=== PATIENT | female | born 1985 | race Caucasian/White ===

== ENCOUNTER 2021-10-08 13:18 | Emergency (ER) | payer MEDICAID ==
[~2021-10-08] VITALS: Ht 167.6 cm; Wt 57.2 kg
[2021-10-08] MEDS ORDERED: LORazepam 2 mg/ml vial IV ONE ×2 (13:35→16:30)
[2021-10-08] MEDS ORDERED: haloperidol lactate 5mg/ml inj IM ONE (13:35)
[2021-10-08] MEDS ORDERED: normal saline 1000ML IV soln IVB ONE (13:35)
--- NOTE | 2021-10-08 13:45 | NUR ---
FIRST CONTACT WITH PT. FOUND WRITHING IN BED FROM ABD PAIN/WRETCHING. PIV STARTED, LABS DRAWN. PT CRYING, ASKING FOR BLANKET. BLANKETS PROVIDED. EKG DONE BY TECH. FLUIDS AND MEDS GIVEN DENNYS EMAR.
[2021-10-08 14:11] LABS: BASOPHILS # (AUTO) 0.1 X10'3 (0-0.2); BASOPHILS % (AUTO) 1.1 % (0-1); EOSINOPHILS % (AUTO) 0.1 % (0-6); HEMATOCRIT 42.1 % (35.0-45.0); HEMOGLOBIN 14.3 g/dl (12.0-16.0); LYMPHOCYTES % (AUTO) 9.6 % (21-51); MEAN CORPUSCULAR HEMOGLOBIN 31.5 PG (27.0-31.0); MEAN CORPUSCULAR VOLUME 92.5 FL (78-98); MONOCYTES # (AUTO) 0.3 X10'3 (0-0.9); MONOCYTES % (AUTO) 3.2 % (2-12); NEUTROPHILS # (AUTO) 9.2 X10'3 (1.8-7.7); PLATELET COUNT 287 X10'3 (140-440); RED BLOOD COUNT 4.55 X10'6 (4.20-5.60); RED CELL DISTRIBUTION WIDTH 13.5 % (11.5-14.5); WHITE BLOOD COUNT 10.7 X10'3 (4.5-11.0)
[2021-10-08 14:26] LABS: ALANINE AMINOTRANSFERASE 19 U/L (12-78); ALBUMIN 4.3 G/DL (3.4-5.0); ALBUMIN/GLOBULIN RATIO 1.1 (1.1-1.5); ALKALINE PHOSPHATASE 49 IU/L (46-116); ANION GAP 11 (8-16); ASPARTATE AMINO TRANSFERASE 16 U/L (10-37); BILIRUBIN,TOTAL 0.5 MG/DL (0.1-1.0); BLOOD UREA NITROGEN 19 MG/DL (7-18); BUN/CREATININE RATIO 18.6 (6.6-38.0); CALCIUM 9.8 MG/DL (8.5-10.1); CHLORIDE 106 MMOL/L (99-107); CREATININE 1.02 MG/DL (0.40-0.90); GLUCOSE 155 MG/DL (70-104); POTASSIUM 3.7 MMOL/L (3.5-5.1); SODIUM 142 MMOL/L (135-145); TOTAL CARBON DIOXIDE 24.6 MMOL/L (24-32); TOTAL PROTEIN 8.3 G/DL (6.4-8.2); eGFR 61 ML/MIN
[2021-10-08 14:53] LABS: HCG SERUM QL NEGATIVE
--- NOTE | 2021-10-08 15:03 | NUR ---
Mary lorenz in [facility] - 10/08/21 at 1506 by JOSE PROVIDER AT [facility]
[2021-10-08] MEDS ORDERED: famotidine/PF 10 mg/ml inj IV ONE (15:05)
[2021-10-08] MEDS ORDERED: ondansetron/PF 4mg/2ml inj IV ONE (15:05)
--- NOTE | 2021-10-08 15:05 | NUR ---
PROVIDER AT BEDSIDE
[2021-10-08] MEDS ORDERED: ONDA4TAB6 PO (15:06)
[2021-10-08] MEDS ORDERED: PROC25SU31 RC (15:06)
[2021-10-08 16:21] VITALS: BP 103/55
--- NOTE | 2021-10-08 16:23 | NUR ---
PT REQUESTING TO SPEAK WITH PROVIDER AGAIN. PT REQUESTING ATIVAN IV OR A RX FOR HOME.
== END 2021-10-08 16:30 | disposition home or self-care (01) ==
LOC: ER 13:20
DX: F12.188 Cannabis abuse with other cannabis-induced disorder (principal); R11.15 Cyclical vomiting syndrome unrelated to migraine; E86.0 Dehydration; R11.2 Nausea with vomiting, unspecified; Z79.899 Other long term (current) drug therapy
CPT/HCPCS: 36415; 80053; 84703; 85025; 93005; 96372; 96374; 96375; 96376; 99284; J1630; J2060; J2405; J3490; J7030

== ENCOUNTER 2021-11-23 22:11 | Emergency (ER) | payer MEDICAID ==
[~2021-11-23] VITALS: Ht 167.6 cm; Wt 59.1 kg
[~2021-11-23 22:11] MED LIST: ONDA4TAB6 PO
[2021-11-24] MEDS ORDERED: ondansetron/PF 4mg/2ml inj IV ONE
[2021-11-24] MEDS ORDERED: normal saline 1000ML IV soln IVB ONE
[2021-11-24] MEDS ORDERED: ONDA4TAB12 PO (01:19)
[2021-11-24 02:05] VITALS: BP 106/75
== END 2021-11-24 02:13 | disposition home or self-care (01) ==
LOC: ER 22:11
DX: U07.1 COVID-19 (principal); A08.4 Viral intestinal infection, unspecified; F12.90 Cannabis use, unspecified, uncomplicated; Z79.899 Other long term (current) drug therapy
CPT/HCPCS: 96361; 96374; 99283; J2405; J7030

== ENCOUNTER 2022-01-20 02:52 | Emergency (ER) | payer MEDICAID, OTHER ==
[~2022-01-20] VITALS: Ht 167.6 cm; Wt 56.8 kg
[~2022-01-20 02:52] MED LIST changes: +ONDA4TAB12 PO
[2022-01-20] MEDS ORDERED: LORazepam 2 mg/ml vial IV ONE (03:05)
[2022-01-20] MEDS ORDERED: ondansetron/PF 4mg/2ml inj IV ONE ×2 (03:05→03:25)
[2022-01-20] MEDS ORDERED: proCHLORperazine 10 MG/2 ml inj IV ONE (03:05)
[2022-01-20] MEDS ORDERED: normal saline 1000ML IV soln IVB ONE (03:05)
[2022-01-20 03:49] LABS: BASOPHILS % (AUTO) 0.3 % (0-1); EOSINOPHILS % (AUTO) 0 % (0-6); HEMATOCRIT 39.6 % (35.0-45.0); HEMOGLOBIN 13.8 g/dl (12.0-16.0); LYMPHOCYTES # (AUTO) 1.7 X10'3 (1.1-4.8); LYMPHOCYTES % (AUTO) 14.3 % (21-51); MEAN CORPUSCULAR HEMOGLOBIN 31.7 PG (27.0-31.0); MEAN CORPUSCULAR HGB CONC 34.8 g/dL (33.0-36.5); MEAN CORPUSCULAR VOLUME 91.2 FL (78-98); MEAN PLATELET VOLUME 8.4 FL (7.4-10.4); MONOCYTES # (AUTO) 0.9 X10'3 (0-0.9); MONOCYTES % (AUTO) 7.7 % (2-12); NEUTROPHILS # (AUTO) 9.3 X10'3 (1.8-7.7); NEUTROPHILS % (AUTO) 77.7 % (42-75); PLATELET COUNT 287 X10'3 (140-440); RED BLOOD COUNT 4.34 X10'6 (4.20-5.60); RED CELL DISTRIBUTION WIDTH 13.1 % (11.5-14.5); WHITE BLOOD COUNT 11.9 X10'3 (4.5-11.0)
[2022-01-20 04:08] LABS: ALANINE AMINOTRANSFERASE 18 U/L (12-78); ALBUMIN 4.2 G/DL (3.4-5.0); ALBUMIN/GLOBULIN RATIO 1.1 (1.1-1.5); ALKALINE PHOSPHATASE 47 IU/L (46-116); ANION GAP 15 (8-16); ASPARTATE AMINO TRANSFERASE 15 U/L (10-37); BETA HCG,QUANTITATIVE < 1.0 mIU/ml; BILIRUBIN,TOTAL 0.7 MG/DL (0.1-1.0); BLOOD UREA NITROGEN 20 MG/DL (7-18); BUN/CREATININE RATIO 20.8 (6.6-38.0); CHLORIDE 99 MMOL/L (99-107); CREATININE 0.96 MG/DL (0.40-0.90); GLUCOSE 119 MG/DL (70-104); LIPASE 88 U/L (73-393); SODIUM 139 MMOL/L (135-145); TOTAL CARBON DIOXIDE 24.6 MMOL/L (24-32); TOTAL PROTEIN 7.9 G/DL (6.4-8.2); eGFR 66 ML/MIN
[2022-01-20 04:10] LABS: POTASSIUM 2.5 MMOL/L (3.5-5.1)
[2022-01-20] MEDS ORDERED: potassium Cl 10 mEq/100mL bag IV ONE (04:15)
[2022-01-20] MEDS ORDERED: potassium Cl 20 mEq SR tablet PO ONE (04:15)
--- NOTE | 2022-01-20 04:16 | NUR ---
SPOKE TO DR HOANG CONCERNING PT'S POTASSIUM. POTASSIUM REPLACEMENT ORDERS WILL BE PLACED.
[2022-01-20] MEDS ORDERED: ONDA-104 PO (05:40)
[2022-01-20 06:22] VITALS: BP 115/74
== END 2022-01-20 06:25 | disposition home or self-care (01) ==
LOC: ER 02:52
DX: R11.15 Cyclical vomiting syndrome unrelated to migraine (principal); E87.6 Hypokalemia; F12.10 Cannabis abuse, uncomplicated; Z79.899 Other long term (current) drug therapy
CPT/HCPCS: 36415; 80053; 83690; 84702; 85025; 96361; 96374; 96375; 99285; J0780; J2060; J2405; J3480; J7030

== ENCOUNTER 2022-02-26 04:33 | Emergency (ER) | payer OTHER ==
[~2022-02-26] VITALS: Ht 167.6 cm; Wt 52.2 kg
[~2022-02-26 04:33] MED LIST changes: +ONDA-104 PO
[2022-02-26] MEDS ORDERED: normal saline 1000ML IV soln IVB ONE ×2 (05:10)
[2022-02-26] MEDS ORDERED: metoclopramide 5 mg/ml inj IV ONE (05:10)
[2022-02-26] MEDS ORDERED: diphenhydrAMINE 50 mg/ml inj IV ONE (05:10)
[2022-02-26 05:11] LABS: BASOPHILS # (AUTO) 0.1 X10'3 (0-0.2); BASOPHILS % (AUTO) 1.3 % (0-1); EOSINOPHILS # (AUTO) 0.1 X10'3 (0-0.9); EOSINOPHILS % (AUTO) 1.6 % (0-6); HEMATOCRIT 42.8 % (35.0-45.0); HEMOGLOBIN 14.5 g/dl (12.0-16.0); LYMPHOCYTES # (AUTO) 1.9 X10'3 (1.1-4.8); LYMPHOCYTES % (AUTO) 20.7 % (21-51); MEAN CORPUSCULAR HEMOGLOBIN 30.7 PG (27.0-31.0); MEAN CORPUSCULAR HGB CONC 33.9 g/dL (33.0-36.5); MEAN CORPUSCULAR VOLUME 90.6 FL (78-98); MEAN PLATELET VOLUME 8.4 FL (7.4-10.4); MONOCYTES # (AUTO) 0.7 X10'3 (0-0.9); MONOCYTES % (AUTO) 7.4 % (2-12); NEUTROPHILS # (AUTO) 6.4 X10'3 (1.8-7.7); PLATELET COUNT 361 X10'3 (140-440); RED BLOOD COUNT 4.73 X10'6 (4.20-5.60); RED CELL DISTRIBUTION WIDTH 13.5 % (11.5-14.5); WHITE BLOOD COUNT 9.2 X10'3 (4.5-11.0)
[2022-02-26] MEDS ORDERED: ONDA4TAB12 PO (05:18)
[2022-02-26 05:28] LABS: ALANINE AMINOTRANSFERASE 15 U/L (12-78); ALBUMIN 3.9 G/DL (3.4-5.0); ALKALINE PHOSPHATASE 48 IU/L (46-116); ANION GAP 15 (8-16); ASPARTATE AMINO TRANSFERASE 17 U/L (10-37); BILIRUBIN,TOTAL 0.6 MG/DL (0.1-1.0); BLOOD UREA NITROGEN 25 MG/DL (7-18); BUN/CREATININE RATIO 29.4 (6.6-38.0); CALCIUM 9.3 MG/DL (8.5-10.1); CHLORIDE 103 MMOL/L (99-107); CREATININE 0.85 MG/DL (0.40-0.90); GLUCOSE 111 MG/DL (70-104); LIPASE 139 U/L (73-393); POTASSIUM 3.7 MMOL/L (3.5-5.1); SODIUM 137 MMOL/L (135-145); TOTAL CARBON DIOXIDE 19.2 MMOL/L (24-32); TOTAL PROTEIN 7.8 G/DL (6.4-8.2); eGFR 76 ML/MIN
[2022-02-26 06:17] VITALS: BP 124/78
--- NOTE | 2022-02-26 06:20 | NUR ---
FIRST CONTACT WITH PT. FOUND RESTING IN BED, NS INFUSING. PT AWAITING DISCHARGE, IN NO DISTRESS. VSS.
[2022-02-27] MEDS ORDERED: ONDA8TAB13 PO (23:18)
[2022-02-27] MEDS ORDERED: PANT-47 PO (23:18)
== END 2022-02-26 06:45 | disposition home or self-care (01) ==
LOC: ER 04:34
DX: R11.2 Nausea with vomiting, unspecified (principal); E86.0 Dehydration; R10.13 Epigastric pain; F12.90 Cannabis use, unspecified, uncomplicated; F17.210 Nicotine dependence, cigarettes, uncomplicated; Z79.899 Other long term (current) drug therapy
CPT/HCPCS: 36415; 80053; 83690; 85025; 96361; 96374; 96375; 99284; J1200; J2765; J7030

== ENCOUNTER 2022-02-27 20:55 | Emergency (ER) | payer MEDICAID, OTHER ==
[~2022-02-27] VITALS: Ht 167.6 cm; Wt 54.5 kg
[2022-02-27] MEDS ORDERED: ONDA8TAB13 PO (23:18)
[2022-02-27] MEDS ORDERED: PANT-47 PO (23:18)
[2022-02-27] MEDS ORDERED: pantoprazole 40mg Tablet.DR PO ONE (23:20)
[2022-02-27] MEDS ORDERED: LORazepam 1 MG tablet PO ONE (23:20)
[2022-02-27] MEDS ORDERED: ondansetron 4mg rapidly disintigrating tab PO ONE (23:20)
[2022-02-27 23:48] VITALS: BP 118/90
== END 2022-02-27 23:50 | disposition home or self-care (01) ==
LOC: ER 20:56
DX: F41.9 Anxiety disorder, unspecified (principal); F17.200 Nicotine dependence, unspecified, uncomplicated; F12.90 Cannabis use, unspecified, uncomplicated; Z79.899 Other long term (current) drug therapy
CPT/HCPCS: 99284

== ENCOUNTER 2022-11-08 11:27 | Emergency (ER) | payer BC, MEDICAID ==
[~2022-11-08] VITALS: Ht 165.1 cm; Wt 59.8 kg
[~2022-11-08 11:27] MED LIST changes: +ONDA8TAB13 PO; +PANT-47 PO
[2022-11-08] MEDS ORDERED: diphenhydrAMINE 50 mg/ml inj IV ONE (12:15)
[2022-11-08] MEDS ORDERED: ondansetron/PF 4mg/2ml inj IV ONE (12:15)
[2022-11-08] MEDS ORDERED: LORazepam 2 mg/ml vial IV ONE (12:15)
[2022-11-08] MEDS ORDERED: metoclopramide 5 mg/ml inj IV ONE (12:15)
[2022-11-08] MEDS ORDERED: normal saline 1000ml 1,000 ML IV ONE (12:15)
[2022-11-08] MEDS ORDERED: ketorolac trometh. 30mg/ml inj. IV ONE (12:25)
[2022-11-08 12:43] LABS: ALANINE AMINOTRANSFERASE 15 U/L (12-78); ALBUMIN 4.2 G/DL (3.4-5.0); ALBUMIN/GLOBULIN RATIO 1.2 (1.1-1.5); ALKALINE PHOSPHATASE 50 IU/L (46-116); ANION GAP 11 (8-16); ASPARTATE AMINO TRANSFERASE 17 U/L (10-37); BILIRUBIN,TOTAL 0.6 MG/DL (0.1-1.0); BLOOD UREA NITROGEN 17 MG/DL (7-18); BUN/CREATININE RATIO 19.8 (6.6-38.0); CALCIUM 9.3 MG/DL (8.5-10.1); CHLORIDE 107 MMOL/L (99-107); CREATININE 0.86 MG/DL (0.40-0.90); GLUCOSE 146 MG/DL (70-104); LIPASE 108 U/L (73-393); POTASSIUM 3.6 MMOL/L (3.5-5.1); SODIUM 140 MMOL/L (135-145); TOTAL CARBON DIOXIDE 21.8 MMOL/L (24-32); TOTAL PROTEIN 7.8 G/DL (6.4-8.2); eGFR 74 ML/MIN
[2022-11-08 12:44] LABS: BASOPHILS # (AUTO) 0.1 X10'3 (0-0.2); BASOPHILS % (AUTO) 0.8 % (0-1); EOSINOPHILS % (AUTO) 0.1 % (0-6); HEMATOCRIT 42.4 % (35.0-45.0); HEMOGLOBIN 13.9 g/dl (12.0-16.0); MEAN CORPUSCULAR HEMOGLOBIN 30.8 PG (27.0-31.0); MEAN CORPUSCULAR HGB CONC 32.7 g/dL (33.0-36.5); MEAN CORPUSCULAR VOLUME 94.2 FL (78-98); MEAN PLATELET VOLUME 8.4 FL (7.4-10.4); MONOCYTES # (AUTO) 0.3 X10'3 (0-0.9); MONOCYTES % (AUTO) 2.5 % (2-12); NEUTROPHILS # (AUTO) 12.2 X10'3 (1.8-7.7); NEUTROPHILS % (AUTO) 89.6 % (42-75); PLATELET COUNT 278 X10'3 (140-440); RED CELL DISTRIBUTION WIDTH 13.4 % (11.5-14.5); WHITE BLOOD COUNT 13.6 X10'3 (4.5-11.0)
[2022-11-08] MEDS ORDERED: ONDA8TAB13 PO (13:02)
[2022-11-08] MEDS ORDERED: methylnaltrexone br 12mg/0.6ml inj***SubQ only SQ ONE (14:00)
[2022-11-08] MEDS ORDERED: bisacodyl 5mg tablet.DR PO ONE (14:00)
--- NOTE | 2022-11-08 14:20 | NUR ---
Pt had a regular bowel movement. RN non-admin two medications for constipation
[2022-11-08 15:02] LABS: URINE HCG NEGATIVE (NEG)
[2022-11-08 15:17] LABS: COLOR,URINE YELLOW (Yellow); GLUCOSE, URINE NEGATIVE (Neg); KETONES,URINE TRACE mg/dl (Neg); LEUKOCYTE ESTERASE ,URINE NEGATIVE (Neg); NITRITES, URINE NEGATIVE (Neg); OCCULT BLOOD,URINE MODERATE (Neg); PROTEIN,URINE TRACE mg/dl (Neg); UROBILINOGEN,URINE 0.2 E.U/dL (0.2-1.0)
[2022-11-08 15:23] LABS: URINE AMPHETAMINE SCREEN NEGATIVE (Neg); URINE BARBITUATE SCREEN NEGATIVE (Neg); URINE BENZODIAZEPINES SCREEN NEGATIVE (Neg); URINE CANNABINOID SCREEN POSITIVE (Neg); URINE COCAINE SCREEN NEGATIVE (Neg); URINE METHADONE SCREEN NEGATIVE (Neg); URINE OPIATE SCREEN NEGATIVE (Neg); URINE PHENCYCLIDINE SCREEN NEGATIVE (Neg)
[2022-11-08 15:53] LABS: UA COLLECTION TYPE STRAIGHT CATH
[2022-11-08 15:58] LABS: MUCUS STRANDS MANY /LPF (Neg)
[2022-11-08 16:02] LABS: WBC,URINE 0-4 /HPF (0-4)
[2022-11-08 16:04] LABS: SQUAMOUS EPITHELIAL CELL,UR MANY /LPF (FEW)
[2022-11-08 16:09] LABS: BACTERIA,URINE FEW /HPF (Neg)
[2022-11-08 16:10] LABS: AMORPHOUS URATES 4+; TRANSITIONAL EPI CELLS,URINE FEW /HPF
[2022-11-08 16:16] LABS: CLARITY,URINE CLOUDY (Clear)
[2022-11-08 16:26] VITALS: BP 99/63
== END 2022-11-08 16:30 | disposition home or self-care (01) ==
LOC: ER 11:27
DX: R11.2 Nausea with vomiting, unspecified (principal); R10.84 Generalized abdominal pain; F12.10 Cannabis abuse, uncomplicated; F41.9 Anxiety disorder, unspecified; Z79.899 Other long term (current) drug therapy; Z79.1 Long term (current) use of non-steroidal anti-inflammatories (NSAID)
CPT/HCPCS: 36415; 74018; 74176; 80053; 80305; 81001; 81025; 83690; 84145; 84484; 85025; 96361; 96374; 96375; 99285; J1200; J1885; J2060; J2405; J2765; J7030

== ENCOUNTER 2022-12-02 13:21 | Emergency (ER) | payer BC ==
[~2022-12-02] VITALS: Ht 165.1 cm; Wt 56.0 kg
[2022-12-02 13:22] VITALS: BP 131/82
[2022-12-02] MEDS ORDERED: LORazepam 0.5 MG tablet PO STA (14:30)
[2022-12-02] MEDS ORDERED: ondansetron 4mg rapidly disintigrating tab PO ONE (14:30)
[2022-12-02] MEDS ORDERED: ONDA8TAB13 PO (14:46)
--- NOTE | 2022-12-02 15:07 | NUR ---
ATTMEPTED TO CALL PATIENT REGARDING WALLET LEFT IN ROOM. PT DID NOT ANSWER. WALLET PLACED WITH REGISTRATION.
== END 2022-12-02 14:59 | disposition home or self-care (01) ==
LOC: ER 13:22
DX: F41.9 Anxiety disorder, unspecified (principal); R11.2 Nausea with vomiting, unspecified; F12.90 Cannabis use, unspecified, uncomplicated; Z98.51 Tubal ligation status
CPT/HCPCS: 99283

== ENCOUNTER 2023-08-23 11:13 | Emergency (ER) | payer BC ==
--- NOTE | 2023-08-23 12:00 | NUR ---
NA 1200
--- NOTE | 2023-08-23 12:39 | NUR ---
NA at 1225 and 1238. Security saw pt leave in car
== END 2023-08-23 12:41 | disposition left against medical advice (07) ==
LOC: ER 11:13
DX: F41.9 Anxiety disorder, unspecified (principal); Z53.21 Procedure and treatment not carried out due to patient leaving prior to being seen by health care provider

== ENCOUNTER 2024-05-09 14:31 | Emergency (ER) | payer BC ==
[~2024-05-09] VITALS: Ht 167.6 cm; Wt 47.7 kg
[~2024-05-09 14:31] MED LIST changes: +ACET-75 PO; +AMOX-102 PO; +IBUP-1984 PO; +ONDA-243 PO; +ONDA-245 PO; -ONDA4TAB12 PO; -ONDA8TAB13 PO
[2024-05-09 14:38] VITALS: TEMP 98.4
[2024-05-09] MEDS: normal saline 1000ml 1,000 ML IV ONE (15:25)
[2024-05-09] MEDS: diphenhydrAMINE 50 mg/ml inj IV ONE (15:26)
[2024-05-09] MEDS: metoclopramide 5 mg/ml inj IV ONE (15:26)
[2024-05-09 16:01] LABS: BASOPHILS # (AUTO) 0.1 X10'3 (0-0.2); BASOPHILS % (AUTO) 0.7 % (0-1); EOSINOPHILS % (AUTO) 0 % (0-6); HEMATOCRIT 40.3 % (35.0-45.0); HEMOGLOBIN 13.5 g/dl (12.0-16.0); LYMPHOCYTES # (AUTO) 0.9 X10'3 (1.1-4.8); LYMPHOCYTES % (AUTO) 8.4 % (21-51); MEAN CORPUSCULAR HGB CONC 33.5 g/dL (33.0-36.5); MEAN CORPUSCULAR VOLUME 92.7 FL (78-98); MEAN PLATELET VOLUME 8.5 FL (7.4-10.4); MONOCYTES # (AUTO) 0.3 X10'3 (0-0.9); MONOCYTES % (AUTO) 2.8 % (2-12); NEUTROPHILS # (AUTO) 9.2 X10'3 (1.8-7.7); NEUTROPHILS % (AUTO) 88.1 % (42-75); PLATELET COUNT 343 X10'3 (140-440); RED BLOOD COUNT 4.34 X10'6 (4.20-5.60); RED CELL DISTRIBUTION WIDTH 13.6 % (11.5-14.5); WHITE BLOOD COUNT 10.4 X10'3 (4.5-11.0)
[2024-05-09 16:30] VITALS: BP 117/70; PULSE 57; O2SAT 95
[2024-05-09 16:33] LABS: ALANINE AMINOTRANSFERASE 17 U/L (12-78); ALBUMIN 3.8 G/DL (3.4-5.0); ALBUMIN/GLOBULIN RATIO 0.9 (1.1-1.5); ALKALINE PHOSPHATASE 52 IU/L (46-116); ANION GAP 17 (8-16); ASPARTATE AMINO TRANSFERASE 19 U/L (10-37); BILIRUBIN,TOTAL 0.3 MG/DL (0.1-1.0); BLOOD UREA NITROGEN 26 MG/DL (7-18); BUN/CREATININE RATIO 30.6 (10.0-20.0); CALCIUM 9.7 MG/DL (8.5-10.1); CHLORIDE 104 MMOL/L (99-107); CREATININE 0.85 MG/DL (0.40-0.90); GLUCOSE 119 MG/DL (70-104); POTASSIUM 3.9 MMOL/L (3.5-5.1); SODIUM 140 MMOL/L (135-145); TOTAL CARBON DIOXIDE 19.3 MMOL/L (24-32); TOTAL PROTEIN 8.1 G/DL (6.4-8.2); eCRCL 68 ML/MIN; eGFR 75 ML/MIN
[2024-05-09 17:34] VITALS: RESP 16
[2024-05-09] MEDS: ketorolac trometh. 30mg/ml inj. IV ONE (17:34)
[2024-05-09] MEDS: proCHLORperazine 10 MG/2 ml inj IV ONE (17:35)
[2024-05-09] MEDS: dicyclomine 10 MG capsule PO ONE (17:35)
[2024-05-09] MEDS ORDERED: ONDA-243 PO (18:03)
[2024-05-09] MEDS ORDERED: DICY20TA17 PO (18:03)
== END 2024-05-09 18:35 | disposition home or self-care (01) ==
LOC: ER 14:31
DX: F41.9 Anxiety disorder, unspecified (principal); R11.0 Nausea; F12.90 Cannabis use, unspecified, uncomplicated; Z79.2 Long term (current) use of antibiotics; Z79.1 Long term (current) use of non-steroidal anti-inflammatories (NSAID); Z79.899 Other long term (current) drug therapy; Z98.51 Tubal ligation status
CPT/HCPCS: 36415; 80053; 85025; 96361; 96374; 96375; 99284; J0780; J1200; J1885; J2765; J7030

== ENCOUNTER 2024-06-26 08:03 | Emergency (ER) | payer BC ==
[~2024-06-26] VITALS: Ht 167.6 cm; Wt 60.0 kg
[~2024-06-26 08:03] MED LIST changes: -ACET-75 PO; -AMOX-102 PO; +DICY20TA17 PO; -IBUP-1984 PO
[2024-06-26 08:46] LABS: BASOPHILS # (AUTO) 0.1 X10'3 (0-0.2); EOSINOPHILS % (AUTO) 0.2 % (0-6); HEMATOCRIT 40.2 % (35.0-45.0); HEMOGLOBIN 13.7 g/dl (12.0-16.0); LYMPHOCYTES # (AUTO) 1.2 X10'3 (1.1-4.8); LYMPHOCYTES % (AUTO) 11.6 % (21-51); MEAN CORPUSCULAR HEMOGLOBIN 31.6 PG (27.0-31.0); MEAN CORPUSCULAR HGB CONC 34.2 g/dL (33.0-36.5); MEAN CORPUSCULAR VOLUME 92.4 FL (78-98); MEAN PLATELET VOLUME 8.1 FL (7.4-10.4); MONOCYTES # (AUTO) 0.3 X10'3 (0-0.9); MONOCYTES % (AUTO) 2.9 % (2-12); NEUTROPHILS # (AUTO) 8.5 X10'3 (1.8-7.7); NEUTROPHILS % (AUTO) 84.3 % (42-75); PLATELET COUNT 306 X10'3 (140-440); RED BLOOD COUNT 4.34 X10'6 (4.20-5.60); RED CELL DISTRIBUTION WIDTH 13.7 % (11.5-14.5)
[2024-06-26 09:02] LABS: ALANINE AMINOTRANSFERASE 14 U/L (12-78); ALBUMIN/GLOBULIN RATIO 1.1 (1.1-1.5); ALKALINE PHOSPHATASE 50 IU/L (46-116); AMYLASE 40 U/L (25-115); ANION GAP 13 (8-16); ASPARTATE AMINO TRANSFERASE 16 U/L (10-37); BILIRUBIN,TOTAL 0.6 MG/DL (0.1-1.0); BLOOD UREA NITROGEN 18 MG/DL (7-18); BUN/CREATININE RATIO 24.3 (10.0-20.0); CALCIUM 9.3 MG/DL (8.5-10.1); CHLORIDE 109 MMOL/L (99-107); CREATININE 0.74 MG/DL (0.40-0.90); GLUCOSE 154 MG/DL (70-104); LIPASE 37 U/L (16-77); POTASSIUM 3.8 MMOL/L (3.5-5.1); SODIUM 141 MMOL/L (135-145); TOTAL CARBON DIOXIDE 18.7 MMOL/L (24-32); TOTAL PROTEIN 7.6 G/DL (6.4-8.2); eCRCL 97 ML/MIN; eGFR 88 ML/MIN
[2024-06-26] MEDS: ketorolac trometh 15mg/ml vial 15 MG/ML ML IV ONE (09:18)
[2024-06-26] MEDS: normal saline 1000ML IV soln IVB ONE ×2 (09:19→11:00)
[2024-06-26] MEDS: ondansetron/PF 4mg/2ml inj IV ONE (10:18)
[2024-06-26] MEDS: acetaminophen 1,000mg/100ml IV 100 ML IV ONE (11:05)
[2024-06-26 11:08] LABS: URINE HCG NEGATIVE (NEG)
[2024-06-26 11:09] LABS: BILIRUBIN,URINE NEGATIVE (Neg); CLARITY,URINE CLEAR (Clear); COLOR,URINE YELLOW (Yellow); GLUCOSE, URINE NEGATIVE (Neg); KETONES,URINE >=80 mg/dl (Neg); LEUKOCYTE ESTERASE ,URINE NEGATIVE (Neg); NITRITES, URINE NEGATIVE (Neg); OCCULT BLOOD,URINE TRACE-INTACT (Neg); PH,URINE 8.5 (4.8-8.0); PROTEIN,URINE 100 mg/dl (Neg)
[2024-06-26 11:13] LABS: UA COLLECTION TYPE CLN CATCH MIDSTREAM
[2024-06-26 11:19] LABS: RBC,URINE 20-50 /HPF (0-2); SQUAMOUS EPITHELIAL CELL,UR FEW /LPF (FEW)
[2024-06-26 11:20] LABS: BACTERIA,URINE 2+ /HPF (Neg); MUCUS STRANDS MANY /LPF (Neg)
[2024-06-26] MEDS: CefTRIAXone/D5W-Rocephin 1gm 50 ML IV ONE (11:39)
[2024-06-26] MEDS: morphine 2 MG/ML inj. syringe IV ONE (11:40)
[2024-06-26 11:45] LABS: URINE AMPHETAMINE SCREEN NEGATIVE (Neg); URINE BARBITUATE SCREEN NEGATIVE (Neg); URINE BENZODIAZEPINES SCREEN NEGATIVE (Neg); URINE CANNABINOID SCREEN POSITIVE (Neg); URINE COCAINE SCREEN NEGATIVE (Neg); URINE METHADONE SCREEN NEGATIVE (Neg); URINE OPIATE SCREEN NEGATIVE (Neg); URINE PHENCYCLIDINE SCREEN NEGATIVE (Neg)
[2024-06-26] MEDS: LORazepam 2 mg/ml vial IV ONE (12:46)
[2024-06-26] MEDS ORDERED: NAPR-56 PO (13:11)
[2024-06-26] MEDS ORDERED: CEPH250T PO (13:11)
[2024-06-26 13:29] VITALS: BP 117/79; PULSE 69; RESP 14; TEMP 98.2; O2SAT 97
== END 2024-06-26 13:28 | disposition home or self-care (01) ==
LOC: ER 08:04
DX: N39.0 Urinary tract infection, site not specified (principal); R10.84 Generalized abdominal pain; K21.9 Gastro-esophageal reflux disease without esophagitis; F41.9 Anxiety disorder, unspecified; F17.200 Nicotine dependence, unspecified, uncomplicated; F12.90 Cannabis use, unspecified, uncomplicated; Z79.2 Long term (current) use of antibiotics; Z79.899 Other long term (current) drug therapy; Z98.51 Tubal ligation status
CPT/HCPCS: 36415; 80053; 80305; 81001; 81025; 82150; 83690; 85025; 87088; 96361; 96365; 96375; 99285; J0131; J0696; J1885; J2060; J2270; J2405; J7030; 87077; 87186

== ENCOUNTER 2024-06-28 03:55 | Emergency (ER) | payer BC, OTHER ==
[~2024-06-28] VITALS: Ht 167.6 cm; Wt 55.2 kg
[~2024-06-28 03:55] MED LIST changes: +CEPH250T PO; +NAPR-56 PO
[2024-06-28] MEDS: metoclopramide 5 mg/ml inj IV ONE (04:44)
[2024-06-28 04:45] LABS: BASOPHILS % (AUTO) 0.5 % (0-1); EOSINOPHILS % (AUTO) 0.1 % (0-6); HEMOGLOBIN 12.3 g/dl (12.0-16.0); LYMPHOCYTES # (AUTO) 1.9 X10'3 (1.1-4.8); LYMPHOCYTES % (AUTO) 19.4 % (21-51); MEAN CORPUSCULAR HEMOGLOBIN 31.7 PG (27.0-31.0); MEAN CORPUSCULAR HGB CONC 34.3 g/dL (33.0-36.5); MEAN CORPUSCULAR VOLUME 92.3 FL (78-98); MEAN PLATELET VOLUME 8.2 FL (7.4-10.4); MONOCYTES # (AUTO) 0.8 X10'3 (0-0.9); NEUTROPHILS # (AUTO) 7.1 X10'3 (1.8-7.7); PLATELET COUNT 283 X10'3 (140-440); RED CELL DISTRIBUTION WIDTH 13.8 % (11.5-14.5); WHITE BLOOD COUNT 9.8 X10'3 (4.5-11.0)
[2024-06-28] MEDS: LORazepam 2 mg/ml vial IV ONE ×2 (04:45→09:54)
[2024-06-28] MEDS: normal saline 1000ml 1,000 ML IV ONE ×2 (04:54→06:34)
[2024-06-28] MEDS: ondansetron/PF 4mg/2ml inj IV ONE (04:55)
[2024-06-28 05:02] LABS: ALANINE AMINOTRANSFERASE 16 U/L (12-78); ALBUMIN 3.6 G/DL (3.4-5.0); ALBUMIN/GLOBULIN RATIO 1.1 (1.1-1.5); ALKALINE PHOSPHATASE 43 IU/L (46-116); ANION GAP 13 (8-16); ASPARTATE AMINO TRANSFERASE 18 U/L (10-37); BILIRUBIN,TOTAL 0.5 MG/DL (0.1-1.0); BLOOD UREA NITROGEN 19 MG/DL (7-18); BUN/CREATININE RATIO 30.2 (10.0-20.0); CHLORIDE 104 MMOL/L (99-107); CREATININE 0.63 MG/DL (0.40-0.90); GLUCOSE 111 MG/DL (70-104); SODIUM 140 MMOL/L (135-145); TOTAL PROTEIN 6.9 G/DL (6.4-8.2); eCRCL 106 ML/MIN; eGFR > 90 ML/MIN
[2024-06-28 05:12] LABS: BILIRUBIN,URINE NEGATIVE (Neg); CLARITY,URINE SLIGHTLY CLOUDY (Clear); COLOR,URINE YELLOW (Yellow); GLUCOSE, URINE NEGATIVE (Neg); KETONES,URINE >=80 mg/dl (Neg); LEUKOCYTE ESTERASE ,URINE NEGATIVE (Neg); NITRITES, URINE NEGATIVE (Neg); OCCULT BLOOD,URINE MODERATE (Neg); PH,URINE 6.5 (4.8-8.0); PROTEIN,URINE 30 mg/dl (Neg); UROBILINOGEN,URINE 0.2 E.U/dL (0.2-1.0)
[2024-06-28 05:14] LABS: UA COLLECTION TYPE VOIDED
[2024-06-28 05:17] LABS: WBC,URINE 0-4 /HPF (0-4)
[2024-06-28 05:18] LABS: BACTERIA,URINE FEW /HPF (Neg); MUCUS STRANDS MANY /LPF (Neg); SQUAMOUS EPITHELIAL CELL,UR MODERATE /LPF (FEW)
[2024-06-28 05:19] LABS: RBC,URINE 50-100 /HPF (0-2)
[2024-06-28] MEDS: potassium Cl 20 mEq SR tablet PO STA (05:47)
[2024-06-28] MEDS: cephalexin 250mg capsule PO ONE (05:48)
[2024-06-28] MEDS ORDERED: POTA-207 PO (05:52)
[2024-06-28 06:16] LABS: URINE HCG NEGATIVE (NEG)
[2024-06-28] MEDS: normal saline 1000ML IV soln IVB ONE (06:37)
[2024-06-28] MEDS ORDERED: LORazepam 2 mg/ml vial IV ONE (09:35)
[2024-06-28 10:36] VITALS: BP 105/80; PULSE 59; RESP 16; TEMP 98.4; O2SAT 97
== END 2024-06-28 10:15 | disposition home or self-care (01) ==
LOC: ER 03:56
DX: R11.2 Nausea with vomiting, unspecified (principal); K21.9 Gastro-esophageal reflux disease without esophagitis; F41.9 Anxiety disorder, unspecified; F12.90 Cannabis use, unspecified, uncomplicated; Z79.899 Other long term (current) drug therapy; Z79.1 Long term (current) use of non-steroidal anti-inflammatories (NSAID); Z98.51 Tubal ligation status
CPT/HCPCS: 36415; 80053; 81001; 81025; 83605; 84145; 85025; 87040; 96361; 96374; 96375; 96376; 99285; J2060; J2405; J2765; J7030